=== PATIENT | female | born 1980 | race Caucasian/White ===

== ENCOUNTER 2018-03-11 21:46 | Observation (INO) | payer OTHER ==
[~2018-03-11] VITALS: Ht 137.2 cm; Wt 61.8 kg
[~2018-03-11 21:46] MED LIST: HYDROCORTISONE5 MG PO; KEPPRA250 MG PO; KEPPRA500 MG PO; LEVOXYL50 MCG PO; MIRALAX17 GM PO; ZANTAC 7575 MG PO
[2018-03-11 22:55] LABS: BASOPHILS # (AUTO) 0.1 (0.0-0.1); BASOPHILS % 0.6 % (0.0-1.0); HEMATOCRIT 40.4 % (34.2-44.1); LYMPHOCYTES # (AUTO) 2.6 (1.0-3.2); LYMPHOCYTES % 23.4 % (18.0-39.1); MEAN CORPUSCULAR HEMOGLOBIN 26.8 pg (28-32); MEAN CORPUSCULAR HGB CONC 32.2 g/dL (31-35); MEAN CORPUSCULAR VOLUME 83.3 fL (81-99); MONOCYTES # (AUTO) 0.8 (0.2-0.8); MONOCYTES % 7.5 % (4.4-11.3); NEUTROPHILS # (AUTO) 7.6 (2.1-6.9); NEUTROPHILS % 67.7 % (38.7-80.0); PLATELET COUNT 363 x10e3/uL (140-360); RED BLOOD COUNT 4.85 x10e6/uL (3.6-5.1); RED CELL DISTRIBUTION WIDTH 15.1 % (11.7-14.4)
[2018-03-11 23:10] LABS: ALANINE AMINOTRANSFERASE 13 IU/L (0-55); ALBUMIN 3.8 g/dL (3.5-5.0); ALKALINE PHOSPHATASE 76 IU/L (40-150); AMYLASE 44 U/L (25-125); ANION GAP 15.3 mmol/L (8-16); BLOOD UREA NITROGEN 19 mg/dL (7-26); BUN/CREATININE RATIO 21 (6-25); CALCIUM 9.4 mg/dL (8.4-10.2); CARBON DIOXIDE 23 mmol/L (22-29); CHLORIDE 105 mmol/L (98-107); CREATINE KINASE 50 IU/L (29-168); CREATININE, SERUM 0.89 mg/dL (0.57-1.11); EST GLOMERULAR FILTRATION RATE > 60 ML/MIN (60-); GLUCOSE 109 mg/dL (74-118); LIPASE 29 U/L (8-78); POTASSIUM 4.3 mmol/L (3.5-5.1); SODIUM 139 mmol/L (136-145)
--- NOTE | 2018-03-11 23:30 | Diagnostic Imaging Report ---
EXAM: CHEST SINGLE (PORTABLE), AP 1 view INDICATION: Shortness of breath, possible foreign body in esophagus COMPARISON: None FINDINGS: LINES/TUBES: None LUNGS: No consolidations or edema. PLEURA: No effusions or pneumothorax. HEART AND MEDIASTINUM: Normal size and contour. BONES AND SOFT TISSUES: No acute findings. IMPRESSION: No acute thoracic abnormality. Signed by: Dr. Adelaida Turner M.D. on 03/11/2018 11:27 PM
[2018-03-11 23:32] LABS: BILIRUBIN,URINE NEGATIVE (NEGATIVE); CLARITY,URINE CLEAR (CLEAR); COLOR,URINE YELLOW (YELLOW); KETONES,URINE NEGATIVE (NEGATIVE); LEUKOCYTE ESTERASE ,URINE NEGATIVE (NEGATIVE); NITRITE,URINE NEGATIVE (NEGATIVE); PROTEIN,URINE DIPSTICK NEGATIVE (NEGATIVE); URINE UROBILINOGEN 0.2 mg/dL (0.2 - 1)
[2018-03-11 23:34] LABS: BACTERIA,URINE FEW /HPF; EPITHELIAL CELLS,URINE FEW /LPF; RBC,URINE 0-5 /HPF (0-5)
--- NOTE | 2018-03-11 23:54 | Diagnostic Imaging Report ---
History: Respiratory distress, evaluate for esophageal foreign body. Comparison studies: None Technique: Axial images were obtained from the skull base to the thoracic inlet. Coronal and sagittal images reconstructed from the axial data. Intravenous contrast: None Findings: Evaluation of the neck is limited due to the absence of intravenous contrast. In spite of this limitation, Soft tissues: Subtle linear hyperdensity in the posterior wall of the trachea, approximately measures 1.3 cm in maximum craniocaudad dimension (image 24, series 600) may either be artifactual or represent foreign body. Mild nonspecific narrowing of the oropharyngeal airway, the palatine tonsils are not significantly enlarged. Lymph nodes: No radiographically significant adenopathy. Vessels: Cannot evaluate. Glands (thyroid, parotid and submandibular): Fatty atrophy of bilateral submandibular and parotid glands, which are barely visualized. The thyroid gland is not well visualized, possibly represents hypoplasia or aplasia. Orbits: No abnormalities. Paranasal sinuses: Clear. Temporal bones: No abnormalities. Skull base and facial bones: Intact. Cervical spine: Loss of normal cervical lordosis may be positional or due to muscle spasm. No canal or foraminal stenosis. IMPRESSION: Subtle linear radiopaque density in the posterior wall of the trachea may either represent foreign body or artifact. If there is clinical concern consider follow-up with direct visualization. Nonspecific mild narrowing of the oropharyngeal airway. Signed by: Dr. Constance Huffman M.D. on 03/11/2018 11:50 PM
[2018-03-12] MEDS ORDERED: LEVETIRACETAM 500MG/5ML VIAL 500 MG in SODIUM CHLORIDE 0.9% 100 ML 100 ML IV ONE (00:15)
[2018-03-12] MEDS ORDERED: HYDROCORTISONE SOD SUCCINATE 100 MG VIAL IV ONE (00:15)
[2018-03-12] MEDS ORDERED: SODIUM CHLORIDE 0.9% 1000ML 1,000 ML IV SCH ×2 (00:19→17:30)
[2018-03-12] MEDS ORDERED: ONDANSETRON HCL INJ 2 MG/ML VIAL IV PRN (00:30)
[2018-03-12] MEDS ORDERED: LEVETIRACETAM 500MG/5ML VIAL 250 MG in SODIUM CHLORIDE 0.9% 100 ML 100 ML IV ONE (00:30)
[2018-03-12] MEDS ORDERED: LEVETIRACETAM 500 MG/5 ML VIAL IV ONE (00:55)
[2018-03-12] MEDS ORDERED: SODIUM CHLORIDE 0.9% 100 ML ONE (01:27)
[2018-03-12] MEDS ORDERED: LORAZEPAM0.5 MG PO (02:38)
[2018-03-12] MEDS ORDERED: CORTEF5 MG PO (02:38)
[2018-03-12] MEDS ORDERED: LEVETIRACE100 MG/1 M PO (02:38)
[2018-03-12] MEDS ORDERED: LEVOTHYROXINE50 MCG PO (02:38)
[2018-03-12] MEDS ORDERED: levetiracetam PO (02:38)
[2018-03-12] MEDS ORDERED: LEVETIRACETAM 500MG/5ML VIAL 500 MG in SODIUM CHLORIDE 0.9% 100 ML 100 ML IV SCH ×6 (05:00→14:00)
[2018-03-12] MEDS ORDERED: HYDROCORTISONE SOD SUCCINATE 100 MG VIAL IV SCH ×2 (06:00→10:00)
[2018-03-12] MEDS ORDERED: LORAZEPAM INJ 2 MG/ML VIAL IV PRN (08:15)
[2018-03-12] MEDS: HYDROCORTISONE SOD SUCCINATE 100 MG VIAL IV SCH ×3 (08:53→21:26)
[2018-03-12] MEDS: LEVOTHYROXINE SODIUM 100 MCG/VIAL IV SCH (08:54)
[2018-03-12] MEDS: FAMOTIDINE 20 MG/2 ML VIAL IV SCH ×2 (08:55→16:40)
[2018-03-12] MEDS: PANTOPRAZOLE 40 MG 10ML VIAL IV SCH (08:56)
--- NOTE | 2018-03-12 11:01 | Consultation ---
DATE OF CONSULTATION: PULMONARY/CRITICAL CARE CONSULTATION REFERRING PHYSICIAN: Dr. Cosby. CHIEF COMPLAINT: Brief episode of difficulty breathing. HISTORY OF PRESENT ILLNESS: The patient is a 37-year-old with a congenital neurological disorder. She has profound developmental delay. She is blind. She also has pituitary insufficiency. She takes Synthroid as well as hydrocortisone at home. She has a history of gastroesophageal reflux. She was being followed by Dr. Palacios of gastroenterology. She had an endoscopy about a year ago. She is currently on Pepcid. She had an upper endoscopy about a year ago. She is currently on H2 blockers. About a week ago, she had an episode of nocturnal vomiting, which is new for her. She has not had this type of vomiting in a while. Last night in the late evening, she suddenly became cyanotic and had difficulty breathing. According to the mother, her lips turned blue. The episode lasted for about 10 minutes. The patient was not eating at the time of the event. She had not eaten for at least an hour before the event occurred. She has no prior history of anaphylaxis. She has no history of food allergies or history of anaphylaxis to insect bites. When she came to the emergency department, the mother expressed concern for foreign body because the patient had injected foreign body previously. A CT scan of the neck showed a possible lesion in the posterior wall of the trachea. PAST SURGICAL HISTORY 1. Status post cholecystectomy. 2. Status post hernia repair. 3. Status post endoscopy with Dr. Palacios about a year ago. PAST MEDICAL HISTORY 1. 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 3. Reflux esophagitis. 4. History of sinusitis. SOCIAL HISTORY: The patient lives with her mother. She is not a drinker or smoker. FAMILY HISTORY: There is no significant family history. REVIEW OF SYSTEMS: The patient does not have history of fever. There were no headaches. She does not have neck pain. She did not complain of chest pain. She did not have difficulty breathing other than the one episode described above. She did have some vomiting last week and has had esophageal reflux in the past. She has no abdominal pain. She has no leg edema. PHYSICAL EXAMINATION VITAL SIGNS: The patient is afebrile. Her blood pressure is 105/77 and the pulse is 80. Respiratory rate is 18. The saturation is 97%. HEENT: Examination shows no facial swelling or erythema. The nasal mucosa is normal. She has difficulty opening her mouth. LYMPHATIC: Examination shows no submandibular, cervical or supraclavicular adenopathy. NECK: Examination shows JVD or thyromegaly. CARDIAC: Exam reveals regular rate and rhythm with normal S1 and S2. LUNGS: Auscultation of lungs show decreased breath sounds at the bases. ABDOMEN: Soft, nontender. There is no rebound or guarding. EXTREMITIES: Examination shows no leg edema or calf tenderness. NEUROLOGIC: Exam shows the patient to be blind. She has some spasticity and decreased movement. LABORATORY DATA: CBC is within normal limits. The metabolic panel was normal. IMPRESSIONS 1. Transient laryngospasm probably secondary to gastroesophageal reflux. 2. Possible foreign body along the posterior wall of the trachea. 3. Profound neurological disorder. 4. Blindness. 5. Possible oral dysphagia and aspiration. PLAN 1. We will arrange for a bronchoscopy to look at the upper trachea and make sure there is no foreign body. 2. Speech therapy evaluation. 3. Continue famotidine and Protonix. 4. Consider evaluation by GI. 5. Continue current treatment for panhypopituitarism. Job#: [id number] SKI
[2018-03-12 13:58] VITALS: BP 121/72
[2018-03-12] MEDS ORDERED: LIDOCAINE HCL 4% 50 ML BTL ONE (14:20)
[2018-03-12] MEDS ORDERED: EPINEPHRINE HCL INJ 1 MG/ML AMP ONE (14:21)
[2018-03-12] MEDS ORDERED: LIDOCAINE HCL 2% 30 ML TUBE ONE (14:21)
[2018-03-12] MEDS ORDERED: OXYMETAZOLINE HCL 0.05% NAS 1 SPRAY BTL ONE (14:21)
[2018-03-12] MEDS ORDERED: FENTANYL CITRATE/PF 100MCG/2 ML INJ ONE (15:11)
[2018-03-12 16:06] VITALS: BP 121/72
[2018-03-12] MEDS ORDERED: MELATONIN3 MG PO (16:34)
[2018-03-12] MEDS ORDERED: MILK OF MA2400 MG/10 PO (16:38)
[2018-03-12] MEDS: LEVETIRACETAM 500MG/5ML VIAL 500 MG in SODIUM CHLORIDE 0.9% 100 ML 100 ML IV SCH (16:40)
--- NOTE | 2018-03-12 16:43 | Operative Report ---
DATE OF PROCEDURE: March 12, 2018 PREOPERATIVE DIAGNOSIS: Possible foreign body in trachea. POSTOPERATIVE DIAGNOSIS: Inflamed glottis and upper airway secondary to gastroesophageal reflux. ANESTHESIA: The anesthesia service provided anesthesia and airway management using a laryngeal mask airway. DETAILS OF PROCEDURE: The patient was placed in the supine position. A number 4 laryngeal mask airway was used. The scope was advanced through the laryngeal mask airway. The glottis was inflamed including the cords and the arytenoid cartilages. The vallecula appeared normal. The pyriform sinuses were normal. There were no foreign bodies seen. The scope was advanced through the glottis. The tracheal mucosa appeared normal. There was some mucus removed from the trachea. The leigh was normal. The right tracheobronchial tree was examined. The right upper lobe, right middle lobe and right lower lobe were all normal to the subsegmental level. There were no endobronchial lesions. The scope was then repositioned into the left tracheobronchial tree. The left upper lobe and lingula were normal. The left lower lobe was normal to the endobronchial level. There were no endobronchial lesions. There was friable mucosa in the left mainstem bronchus. No endobronchial lesions. COMPLICATIONS: None. ESTIMATED BLOOD LOSS: None. Job#: [id number] EV
[2018-03-12 17:12] VITALS: BP 110/62
[2018-03-12] MEDS ORDERED: PROPOFOL IV EMULSION 10 MG/ML 20 ML VIAL ONE (17:37)
[2018-03-12] MEDS ORDERED: LIDOCAINE HCL 2% LOCAL INJ 5 ML SDV VIAL INJ ONE (17:37)
[2018-03-12] MEDS ORDERED: HYDROCORTISONE SOD SUCCINATE 100 MG VIAL ONE (17:37)
[2018-03-12] MEDS ORDERED: SEVOFLURANE INHAL SOLN 250 ML PEN BTL ONE (17:37)
[2018-03-12] MEDS ORDERED: MIDAZOLAM HCL 2 MG/2 ML VIAL ONE (18:21)
[2018-03-12 20:00] VITALS: BP 110/62
[2018-03-12 20:30] VITALS: BP 116/71
[2018-03-12] MEDS: ACETAMINOPHEN 325 MG TAB PO PRN (21:26)
[2018-03-12] MEDS: MELATONIN 3 MG TAB PO SCH (21:26)
--- NOTE | 2018-03-12 21:48 | Consultation ---
DATE OF CONSULTATION: March 12, 2018 CARDIOLOGY CONSULTATION REFERRING PHYSICIAN: Dr. Raymond Cosby REASON FOR CONSULTATION: History of abnormal telemetry reads, unspecified, and presenting with possible syncopal episode versus apneic spell. HISTORY OF PRESENT ILLNESS: Ms. Meza is a 37-year-old woman with history of panhypopituitarism, blindness, severe developmental delay, and gastroesophageal reflux disease, who presents to [facility] via the emergency department brought by EMS after she was noted to have episodes of apnea and cyanosis as per family members. When EMS arrived, she was noted to have elevated blood pressure and was very tachycardiac. Upon arrival to the ER per family, patient received some hydrocortisone, however, her blood pressure actually remained on the lower side throughout the night per family report. Family describes a history of some chamber enlargement of the heart and prior reports of telemetry alarms when hospitalized at other institutions, for which family is unsure what these were about, but did not raise their concerns given current presentation. She is unable to voice any concerns due to her development delay. She, however, seems comfortable. She was evaluated by pulmonary for possible foreign body in the trachea, inflamed glottis, and upper airway inflammation secondary to reflux was noted, no foreign body is observed. REVIEW OF SYSTEMS: Twelve-system review unable to assess. ALLERGIES: TO BENADRYL, HYDROMORPHONE. PAST MEDICAL HISTORY: As per HPI. SOCIAL HISTORY: No smoking, alcohol, or drugs. Has good family support. PHYSICAL EXAMINATION: VITAL SIGNS: Temperature 98.2, heart rate 90s, respiratory rate 17, blood pressure 110/62, O2 sat 94%. GENERAL: In no acute distress. NECK: No JVD. CHEST: Clear to auscultation bilaterally. CARDIOVASCULAR: Regular rate and rhythm. Normal S1 and S2. No S3, no S4. No murmurs or rubs. ABDOMEN: Soft. EXTREMITIES: No edema. Warm distal extremities. CARDIOVASCULAR MEDICATIONS: Reviewed. On hydrocortisone 50 mg q.8h. IV and Keppra IV. STUDIES: White blood cells 11.2, hemoglobin 13, platelets 363,000. Sodium 139, potassium 4.3, chloride 105, bicarbonate 23, BUN 19, creatinine 0.89. AST 22, ALT 13, alk phos 76. CK 50, CK-MB 0.5. Troponin I less than 0.001. Total protein 7.6, albumin 3.8, amylase 44, lipase 29. Total cortisol is ordered and pending. EKG, sinus tachycardia with baseline tremor artifact. Telemetry, normal sinus rhythm with rare PACs. No pauses or arrhythmia is observed so far. Chest x-ray, no acute abnormality. Soft tissue neck CT, subtle linear radiopaque density in the posterior wall of the trachea may represent a foreign body or artifact, nonspecific, mild narrowing of the oropharyngeal airway. ASSESSMENT: 1. Reported history of abnormal telemetry strips, unspecified. 2. Rare premature atrial contractions on current telemetry. 3. Episodes of apnea and cyanosis versus less likely syncope. 4. Reported history of enlarged heart chambers, unspecified. Will further review. 5. Panhypopituitarism. 6. Blindness. 7. Severe developmental delay. 8. Inflamed glottis gastroesophageal reflux disease. RECOMMENDATIONS: 1. Maintain on telemetry. 2. Agree with hydrocortisone supplementation given history of secondary adrenal insufficiency and issues with blood pressure reported. 3. Obtain echocardiogram. 4. Further recommendations to follow. Job#: [id number]
[2018-03-13] VITALS (7 sets, daily range): BP systolic 101–131; BP diastolic 59–81
[2018-03-13] MEDS: LEVETIRACETAM 500MG/5ML VIAL 500 MG in SODIUM CHLORIDE 0.9% 100 ML 100 ML IV SCH (04:00)
[2018-03-13 05:33] LABS: BASOPHILS % 0.3 % (0.0-1.0); HEMATOCRIT 34.9 % (34.2-44.1); HEMOGLOBIN 11.2 g/dL (12.0-16.0); LYMPHOCYTES # (AUTO) 2.2 (1.0-3.2); LYMPHOCYTES % 13.7 % (18.0-39.1); MEAN CORPUSCULAR HEMOGLOBIN 26.9 pg (28-32); MEAN CORPUSCULAR HGB CONC 32.1 g/dL (31-35); MEAN CORPUSCULAR VOLUME 83.7 fL (81-99); MONOCYTES # (AUTO) 0.8 (0.2-0.8); NEUTROPHILS # (AUTO) 12.8 (2.1-6.9); NEUTROPHILS % 80.5 % (38.7-80.0); PLATELET COUNT 325 x10e3/uL (140-360); RED BLOOD COUNT 4.17 x10e6/uL (3.6-5.1); RED CELL DISTRIBUTION WIDTH 15.3 % (11.7-14.4)
[2018-03-13 05:48] LABS: ANION GAP 11.5 mmol/L (8-16); BLOOD UREA NITROGEN 11 mg/dL (7-26); BUN/CREATININE RATIO 15 (6-25); CALCIUM 8.2 mg/dL (8.4-10.2); CARBON DIOXIDE 22 mmol/L (22-29); CHLORIDE 113 mmol/L (98-107); CREATININE, SERUM 0.74 mg/dL (0.57-1.11); EST GLOMERULAR FILTRATION RATE > 60 ML/MIN (60-); GLUCOSE 95 mg/dL (74-118); MAGNESIUM 2.1 MG/DL (1.3-2.1); POTASSIUM 3.5 mmol/L (3.5-5.1); SODIUM 143 mmol/L (136-145)
[2018-03-13] MEDS: HYDROCORTISONE SOD SUCCINATE 100 MG VIAL IV SCH ×2 (05:58→14:00)
[2018-03-13 06:14] LABS: FREE T4 (FREE THYROXINE) 1.02 ng/dL (0.9-1.8); THYROID STIMULATING HORMONE 0.092 uIU/mL (0.350-4.940)
[2018-03-13] MEDS: MAGNESIUM HYDROXIDE 30 ML UDC PO SCH (08:21)
[2018-03-13] MEDS: FAMOTIDINE 20 MG/2 ML VIAL IV SCH (08:21)
[2018-03-13] MEDS: PANTOPRAZOLE 40 MG 10ML VIAL IV SCH (09:42)
[2018-03-13] MEDS: LEVOTHYROXINE SODIUM 100 MCG/VIAL IV SCH (09:42)
[2018-03-13] MEDS: ACETAMINOPHEN 325 MG TAB PO PRN (15:40)
[2018-03-13] MEDS: HYDROCORTISONE 10 MG TAB PO SCH (17:31)
--- NOTE | 2018-03-13 17:47 | Consultation ---
DATE OF CONSULTATION: March 13, 2018 ENDOCRINE CONSULTATION Thank you very much for referring this patient. This is a patient of Dr. Cosby. his is a 37-year-old white female who is known to me from her previous followups at [facility]. Patient has septooptic dysplasia associated with seizure disorders, hypocortisolism, hypothyroidism and patient had an episode of apnea and was supposed to have a bronchoscopy done. Post bronchoscopy patient has been on IV steroids. She also has severe reflux as well. The patient at home takes hydrocortisone 5 mg 3 times a day and Synthroid. PHYSICAL EXAMINATION GENERAL: Today the patient is awake. She is of short stature. She has multiple deformities of her upper and lower extremities. VITAL SIGNS: Her heart rate is 60. Blood pressure is 110/60 mmHg. HEENT: Examination essentially unremarkable. Thyroid is palpable. Clinically she is near euthyroid. CHEST: Bilateral vesicular breathing. She had mild bronchospasm. CARDIAC: Both 1st and 2nd heart sounds. There is no 3rd or 4th heart sound. Ejection sound is grade 2/6. The gross lab evaluation shows at this time hemoglobin 11.2 with a hematocrit of 34.9. White count is elevated at 15.9. Electrolytes are essentially unremarkable, except potassium is 3.5. The plan at this time is to do a serum ACTH, free T4, TSH and also discontinue the IV steroids and put her on p.o. steroids. Thanks for referring this patient. I will be following this patient with you. Job#: [id number]
--- NOTE | 2018-03-13 18:03 | Progress Note ---
DATE: March 13, 2018 CARDIOLOGY PROGRESS NOTE SUBJECTIVE: No complaints. OBJECTIVE VITAL SIGNS: Temperature 96.4, heart rate 90, respiratory rate 16, blood pressure 131/73. O2 sat 94% on room air. GENERAL: No acute distress. CHEST: Clear to auscultation. CARDIOVASCULAR: Regular rate and rhythm. S1 and S2. No S3 and no S4. A systolic ejection murmur 2/6. ABDOMEN: Soft. EXTREMITIES: No edema. Warm distal extremities. CARDIOVASCULAR MEDICATIONS: Reviewed on hydrocortisone 20 mg b.i.d., Keppra and lorazepam. TELEMETRY: Normal sinus rhythm when patient has it in place. She is frequently taking leads off. Echocardiogram reviewed, preserved left ventricular systolic function. Mild to moderate tricuspid regurgitation noted. LABORATORY STUDIES: Studies reviewed. White count increasing to 15.9, likely related to steroids. Hemoglobin 11.2. Platelets 325,000. Creatinine 0.74. TSH is slightly decreased at 0.092. ASSESSMENT: 1. Premature ventricular contractions, rare, on telemetry, mainly normal sinus rhythm. 2. Reported episode of apnea and cyanosis, less likely syncope. 3. Mild to moderate tricuspid regurgitation with preserved left ventricular systolic function. 4. Hypopituitarism. 5. Blindness. 6. Severe developmental delay. 7. Inflamed colitis, likely associated to gastroesophageal reflux disease. PLAN: 1. While inhouse, keep on telemetry. 2. Hydrocortisone. 3. Entire supplementation defer to primary service. 4. Hemodynamically stable today. Job#: [id number]
[2018-03-13] MEDS: LORAZEPAM 0.5 MG TAB PO SCH (21:07)
[2018-03-13] MEDS: LEVETIRACETAM ORAL SOLUTION 500 MG/5 ML SOLN PO SCH (21:07)
[2018-03-13] MEDS: MELATONIN 3 MG TAB PO SCH (21:07)
[2018-03-14] VITALS: BP 135/80
[2018-03-14 05:25] VITALS: BP 102/70
[2018-03-14] MEDS: LEVOTHYROXINE SODIUM 50 MCG TAB PO SCH (06:06)
[2018-03-14 06:26] LABS: BASOPHILS # (AUTO) 0.1 (0.0-0.1); BASOPHILS % 0.7 % (0.0-1.0); HEMOGLOBIN 11.8 g/dL (12.0-16.0); LYMPHOCYTES # (AUTO) 2.3 (1.0-3.2); MEAN CORPUSCULAR HEMOGLOBIN 26.4 pg (28-32); MEAN CORPUSCULAR HGB CONC 31.1 g/dL (31-35); MONOCYTES # (AUTO) 0.6 (0.2-0.8); MONOCYTES % 5.5 % (4.4-11.3); NEUTROPHILS # (AUTO) 7.3 (2.1-6.9); NEUTROPHILS % 70.1 % (38.7-80.0); PLATELET COUNT 289 x10e3/uL (140-360); RED BLOOD COUNT 4.47 x10e6/uL (3.6-5.1); RED CELL DISTRIBUTION WIDTH 15.5 % (11.7-14.4)
[2018-03-14 06:45] LABS: ANION GAP 9.6 mmol/L (8-16); BLOOD UREA NITROGEN 13 mg/dL (7-26); BUN/CREATININE RATIO 18 (6-25); CALCIUM 8.6 mg/dL (8.4-10.2); CARBON DIOXIDE 24 mmol/L (22-29); CHLORIDE 110 mmol/L (98-107); CREATININE, SERUM 0.73 mg/dL (0.57-1.11); EST GLOMERULAR FILTRATION RATE > 60 ML/MIN (60-); GLUCOSE 88 mg/dL (74-118); MAGNESIUM 2.2 MG/DL (1.3-2.1); POTASSIUM 3.6 mmol/L (3.5-5.1); SODIUM 140 mmol/L (136-145)
[2018-03-14] MEDS: ACETAMINOPHEN 325 MG TAB PO PRN (08:23)
[2018-03-14] MEDS: MAGNESIUM HYDROXIDE 30 ML UDC PO SCH (08:23)
[2018-03-14] MEDS: PANTOPRAZOLE SOD 40 MG TABEC PO SCH (08:23)
[2018-03-14 08:28] VITALS: BP 132/84
[2018-03-14] MEDS ORDERED: MORPHINE SULFATE 2 MG/ML SYR IV PRN (09:45)
[2018-03-14] MEDS ORDERED: ACETAMINOPHEN/CODEINE 300MG - 30MG TAB PO PRN (09:45)
[2018-03-14] MEDS: LEVETIRACETAM ORAL SOLUTION 500 MG/5 ML SOLN PO SCH ×2 (09:59→21:30)
[2018-03-14] MEDS: OYST-CAL-D 500MG TABLET PO SCH (09:59)
[2018-03-14] MEDS: HYDROCORTISONE 10 MG TAB PO SCH ×2 (09:59→16:55)
[2018-03-14 15:54] VITALS: BP 132/84
[2018-03-14 16:07] VITALS: BP 113/75
[2018-03-14] MEDS: FAMOTIDINE 20 MG TAB PO SCH (16:55)
--- NOTE | 2018-03-14 17:03 | Progress Note ---
DATE: March 14, 2018 CARDIOLOGY PROGRESS NOTE SUBJECTIVE: Sleeping comfortably. OBJECTIVE VITAL SIGNS: Temperature 97.3, heart rate 90, respiratory rate 14, blood pressure 132/84, O2 sat 96% on room air. GENERAL: No acute distress. Sleeping comfortably. CHEST: Clear to auscultation. CARDIOVASCULAR: Regular rate and rhythm, normal S1 and S2, no S3, no S4, no murmurs or rubs. ABDOMEN: Soft and nontender. EXTREMITIES: No edema. No JVD. SKIN: No rash. Moist mucosa. CARDIOVASCULAR MEDICATIONS: Reviewed on hydrocortisone, Keppra, and Protonix. TELEMETRY: Normal sinus rhythm, no arrhythmias. LABORATORY STUDIES: White blood cells 10.4, hemoglobin 11.8, platelets 289,00. Sodium 140, potassium 3.6, chloride 110, bicarbonate 24, BUN 13, creatinine 0.73, glucose 88. Calcium 8.6, magnesium 2.2. BNP 82. ASSESSMENT: 1. Rare PACs, currently in normal sinus rhythm. 2. Reported episode of apnea and cyanosis, less likely syncope. 3. Mild to moderate tricuspid regurgitation with preserved left ventricular systolic function on this admission's echocardiogram. 4. Hypopituitarism. 5. Blindness. 6. Seizure disorder. 7. Severe developmental delay. 8. Inflamed colitis. 9. Severe reflux. PLAN: 1. Continue supplementation of hormones as per endocrine. 2. Keep on telemetry while inhouse. 3. No evidence of arrhythmias or any cardiac etiology for syncope identified so far. Hemodynamically stable. Job#: [id number]
[2018-03-14 20:00] VITALS: BP 137/89
[2018-03-14] MEDS: MELATONIN 3 MG TAB PO SCH (21:30)
[2018-03-14] MEDS: LORAZEPAM 0.5 MG TAB PO SCH (21:31)
[2018-03-15] VITALS: BP 137/84
[2018-03-15 04:00] VITALS: BP 100/60
[2018-03-15 05:48] LABS: BASOPHILS # (AUTO) 0.1 (0.0-0.1); BASOPHILS % 0.7 % (0.0-1.0); HEMATOCRIT 37.7 % (34.2-44.1); LYMPHOCYTES # (AUTO) 2.9 (1.0-3.2); LYMPHOCYTES % 24.7 % (18.0-39.1); MEAN CORPUSCULAR HEMOGLOBIN 26.8 pg (28-32); MEAN CORPUSCULAR HGB CONC 31.8 g/dL (31-35); MEAN CORPUSCULAR VOLUME 84.3 fL (81-99); MONOCYTES # (AUTO) 0.9 (0.2-0.8); MONOCYTES % 7.7 % (4.4-11.3); NEUTROPHILS # (AUTO) 7.7 (2.1-6.9); NEUTROPHILS % 65.8 % (38.7-80.0); PLATELET COUNT 346 x10e3/uL (140-360); RED BLOOD COUNT 4.47 x10e6/uL (3.6-5.1); RED CELL DISTRIBUTION WIDTH 15.5 % (11.7-14.4)
[2018-03-15] MEDS: LEVOTHYROXINE SODIUM 50 MCG TAB PO SCH (06:00)
[2018-03-15 06:03] LABS: BLOOD UREA NITROGEN 15 mg/dL (7-26); BUN/CREATININE RATIO 17 (6-25); CALCIUM 8.7 mg/dL (8.4-10.2); CARBON DIOXIDE 25 mmol/L (22-29); CHLORIDE 109 mmol/L (98-107); CREATININE, SERUM 0.86 mg/dL (0.57-1.11); EST GLOMERULAR FILTRATION RATE > 60 ML/MIN (60-); GLUCOSE 87 mg/dL (74-118); MAGNESIUM 2.2 MG/DL (1.3-2.1); SODIUM 143 mmol/L (136-145)
[2018-03-15] MEDS: HYDROCORTISONE 10 MG TAB PO SCH (07:00)
[2018-03-15 07:38] VITALS: BP 196/99
[2018-03-15] MEDS ORDERED: TYLENOL # 31 EA PO (07:52)
[2018-03-15] MEDS ORDERED: LORAZEPAM0.5 MG PO (07:52)
[2018-03-15] MEDS ORDERED: FAMOTIDINE20 MG PO (08:09)
[2018-03-15] MEDS ORDERED: PROTONIX40 MG/ML PO (08:09)
[2018-03-15] MEDS ORDERED: ATIVAN0.5 MG PO (08:09)
[2018-03-15] MEDS: MAGNESIUM HYDROXIDE 30 ML UDC PO SCH (10:30)
[2018-03-15] MEDS: FAMOTIDINE 20 MG TAB PO SCH (10:30)
[2018-03-15] MEDS: OYST-CAL-D 500MG TABLET PO SCH (10:30)
[2018-03-15] MEDS: LEVETIRACETAM ORAL SOLUTION 500 MG/5 ML SOLN PO SCH (10:30)
[2018-03-15] MEDS: PANTOPRAZOLE SOD 40 MG TABEC PO SCH (10:30)
[2018-03-15 10:55] VITALS: BP 196/99
[2018-03-15 11:10] VITALS: BP 105/63
--- NOTE | 2018-03-15 11:34 | Progress Note ---
DATE: March 15, 2018 CARDIOLOGY PROGRESS NOTE SUBJECTIVE: No complaints. OBJECTIVE VITAL SIGNS: Temperature 98.4, heart rate 88, respiratory rate 20, blood pressure 100/60, O2 sat 95% on room air. GENERAL: In no acute distress. HEENT: [place] and moist mucosa. CHEST: Clear to auscultation bilaterally. CARDIOVASCULAR: Regular rate and rhythm. Normal S1 and S2. No S3, no S4, no murmurs, no rubs. ABDOMEN: Soft. EXTREMITIES: No edema. Warm distal extremities. CARDIOVASCULAR MEDICATIONS: Reviewed; hydrocortisone, Keppra, melatonin, lorazepam, acetaminophen, levothyroxine, and p.r.n. morphine. LABORATORY STUDIES: For today, white blood cells 11.7, hemoglobin 12, platelets 341. Sodium 143, potassium 4, chloride 109, bicarbonate 25, BUN 15, creatinine 0.8, glucose 87, magnesium 2.2, calcium 8.7. TELEMETRY: Normal sinus rhythm. ASSESSMENT 1. Rare premature atrial contractions, currently in sinus rhythm. 2. Apnea and cyanosis, less likely syncope. 3. [id number] tricuspid regurgitation. 4. Preserved left ventricular systolic function. 5. Hypopituitarism. 6. Blindness. 7. Seizure disorder. 8. Severe developmental delay. 9. Inflamed epiglottis. 10. Severe reflux. RECOMMENDATIONS: No evidence so far of etiology for syncope. History is most consistent with airway obstructive temporary issue given inflamed epiglottis in the setting of severe reflux, this might explain episode. There has not been any recurrence. Patient has remained hemodynamically stable and with no evidence of arrhythmias. From a cardiac standpoint, okay to discharge with outpatient followup in 4-6 weeks. Job#: [id number] THELMA
--- NOTE | 2018-03-15 11:40 | Diagnostic Imaging Report ---
EXAM: Complete Abdominal Ultrasound INDICATION: \S\abd pain COMPARISON: None. TECHNIQUE: Transverse and longitudinal images of the upper abdomen were obtained. FINDINGS: Limited study due to bowel gas and inability to follow the breathing instructions. Liver: Size: 11 cm in the right midclavicular line, normal Appearance: Normal echogenicity, smooth contour Mass: No definite focal masses in the visualized portion. Spleen: Size: 10.7 cm in length, normal Echogenicity: Normal Mass: No focal masses Gallbladder: Surgically absent. Bile Ducts: Intrahepatic Ducts: No dilatation Extrahepatic Ducts: Common bile duct measures 0.3 cm, no dilatation Pancreas: Not well visualized. Right Kidney: Size: 8.7 cm Echogenicity: Normal Parenchymal thickness: Normal Collecting System: No hydronephrosis Stone: None Cyst/Mass: None Left Kidney: Size: 8.7 cm Echogenicity: Normal Parenchymal thickness: Normal Collecting System: No hydronephrosis Stone: None Cyst/Mass: None Vessels: Aorta: Not visualized, limiting evaluation. Inferior Vena Cava: Visualized portions are normal Main Portal Vein: 0.6 cm, normal size with hepatopetal flow. Free Fluid: No ascites or pleural effusion IMPRESSION: Very limited study as described above. Unremarkable abdominal ultrasound. Cholecystectomy. Signed by: Dr. Logan Phelps MD on 03/15/2018 11:37 AM
[2018-03-15 15:18] VITALS: BP 118/72
--- NOTE | 2018-03-15 20:39 | Discharge Summary ---
No dictation, 00:00 seconds. PAM LIU MD Job#: [id number]
--- NOTE | 2018-03-15 20:59 | Discharge Summary ---
ADMISSION DIAGNOSES: 1. Possible foreign body in trachea. 2. Hypoxia. 3. Epilepsy. 4. Hypothyroidism. 5. Anxiety. 6. [place] disease. 7. Obese. 8. Arrhythmia. DISCHARGE DIAGNOSES: 1. Possible foreign body in trachea. 2. Hypoxia. 3. Epilepsy. 4. Hypothyroidism. 5. Anxiety. 6. [place]aka disease. 7. Obese. 8. Arrhythmia. 9. Ruled out foreign body in trachea. 10. Ruled out arrhythmias. HISTORY: Patient has a history of hypothyroidism, Mick disease, optic dysplasia, hypopituitarism, profound MR, epilepsy, nonverbal, frequent UTIs, and prediabetic. Surgical history of cholecystectomy and foreign body removal from stomach. HOSPITAL COURSE: A 37-year-old female with profound MR, was found on couch by mother. She was not breathing and her lips were blue. Her mother grabbed her and the patient began to take shallow breath. Her pulse ox was 92% and the blood pressure cuff indicated an arrhythmia. Upon EMS arrival, patient's blood pressure was elevated. Mother did not know an exact number, and the heart rate was in the 200s. According to the mom, the patient ate about an hour before lying down without any coughing or choking noted. On admission, patient had a CT of the neck that showed subtle linear radiopaque density in the posterior wall of the trachea, may represent either foreign body or artifact. Patient also had a chest x-ray that showed no acute thoracic abnormality. Pulmonary was consulted who arranged for a bronchoscope. During the bronchoscope, Dr. Dominguez found inflamed glottis and upper airway secondary to GERD. Cardiology was then consulted due to the unknown arrhythmia per mother's account in the ambulance. Patient remained sinus rhythm and occasionally sinus tach into the low 120s per tele monitoring. No further recommendations per cardiology. Patient was initially put on 50 mg Solu-Medrol t.i.d. upon arrival to the ER. Endo was consulted, who started the patient on p.o. steroids, tapered them down. Patient's bronchial culture showed normal celine. Vital signs were stable. Patient afebrile. Due to abdominal pain, an ultrasound of the abdomen was done, which was negative. Per pulmonology recommendation, patient was started on Pepcid and Protonix for her GERD. Patient was sent home on Pepcid, Protonix, lorazepam, and pain medicine as well as continuing her home medicine. She will follow up with her negotiator next week per her mother's account and follow up with Dr. Dominguez and Dr. Todd as needed. Mom understands discharge instructions and agrees to plan. Dictated by Ani Bender NP PAM LIU MD Job#: [id number]
== END 2018-03-15 15:57 | disposition home or self-care (01) ==
LOC: ER 21:46 → ERHOLD 03-12 00:27 → IMCU 03-12 13:46
PROVIDERS: ADMIT Internal Medicine; ATTEND Internal Medicine
DX: J38.5 Laryngeal spasm (principal); E27.1 Primary adrenocortical insufficiency; E03.9 Hypothyroidism, unspecified; F73 Profound intellectual disabilities; D47.3 Essential (hemorrhagic) thrombocythemia; K21.9 Gastro-esophageal reflux disease without esophagitis; H54.8 Legal blindness, as defined in USA; I49.1 Atrial premature depolarization; Q04.4 Septo-optic dysplasia of brain; G40.909 Epilepsy, unspecified, not intractable, without status epilepticus; R23.0 Cyanosis; I07.1 Rheumatic tricuspid insufficiency; R09.02 Hypoxemia; F41.9 Anxiety disorder, unspecified; E66.9 Obesity, unspecified; Z68.32 Body mass index [BMI] 32.0-32.9, adult; E83.51 Hypocalcemia
CPT/HCPCS: 31622; 36415 ×4; 70490; 71045; 76700; 80048 ×3; 80053; 81001; 82024; 82150; 82533; 82550; 82553; 82948 ×2; 83036; 83690; 83735 ×3; 83880; 84439; 84443; 84484; 85025 ×4; 87205; 87335; 92610; 93005; 93306; 97139; 97162; 97530; 99284; G0378 ×4; G8978; G8979; J1720 ×2; J2001; J2250; J7030; J7050; S0164 ×2; J0171

== ENCOUNTER 2018-12-17 16:43 | Emergency (ER) | payer OTHER ==
[~2018-12-17] VITALS: Ht 137.2 cm; Wt 61.7 kg
[~2018-12-17 16:43] MED LIST changes: +ATIVAN0.5 MG PO; +CORTEF5 MG PO; +FAMOTIDINE20 MG PO; +LEVETIRACE100 MG/1 M PO; +LEVOTHYROXINE50 MCG PO; +LORAZEPAM0.5 MG PO; +MELATONIN3 MG PO; +MILK OF MA2400 MG/10 PO; +PROTONIX40 MG/ML PO; +TYLENOL # 31 EA PO; +levetiracetam PO
[2018-12-17] MEDS ORDERED: HYDROCORTISONE SOD SUCCINATE 100 MG VIAL IV ONE (17:00)
[2018-12-17] MEDS ORDERED: SODIUM CHLORIDE 0.9% 1000ML 1,000 ML IV STA (17:00)
[2018-12-17 18:12] LABS: BASOPHILS # (AUTO) 0.1 (0.0-0.1); BASOPHILS % 0.8 % (0.0-1.0); HEMATOCRIT 43.6 % (34.2-44.1); HEMOGLOBIN 14.1 g/dL (12.0-16.0); LYMPHOCYTES # (AUTO) 1.9 (1.0-3.2); MEAN CORPUSCULAR HEMOGLOBIN 28.2 pg (28-32); MEAN CORPUSCULAR HGB CONC 32.3 g/dL (31-35); MEAN CORPUSCULAR VOLUME 87.2 fL (81-99); MONOCYTES # (AUTO) 0.9 (0.2-0.8); MONOCYTES % 8.4 % (4.4-11.3); NEUTROPHILS # (AUTO) 7.6 (2.1-6.9); PLATELET COUNT 334 x10e3/uL (140-360); RED CELL DISTRIBUTION WIDTH 14.4 % (11.7-14.4)
--- NOTE | 2018-12-17 18:24 | Diagnostic Imaging Report ---
CT BRAIN WO HISTORY: Seizure COMPARISON: Neck CT 03/11/2018 TECHNIQUE: Noncontrast axial scans were obtained from skull base to the vertex. Coronal and sagittal reconstructions obtained from the axial data. One or more of the following dose reduction techniques were used: Automated exposure control, adjustment of the mA and/or kV according to patient size, and/or utilization of iterative reconstruction technique. DISCUSSION: Scalp/Skull: Unremarkable. Brain sulci: Appropriate for patient's age. Ventricles: The septum pellucidum is absent. Otherwise, unremarkable. Extra-axial spaces: No masses or fluid collections. Parenchyma: The optic nerves and chiasm appear atrophic. No mass, hemorrhage, or large vascular territory acute infarct. Dural sinuses: No abnormal densities. Sellar/Suprasellar region: Empty sella. Skull base: Intact. Additional findings: None. IMPRESSION: 1. No acute intracranial abnormalities. 2. 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 Correlate for septo-optic dysplasia. 3. Empty sella. Signed by: Dr. Claudy Moreau M.D. on 12/17/2018 6:20 PM
[2018-12-17 18:31] LABS: INR 0.87; PROTHROMBIN TIME 12.3 seconds (11.9-14.5)
[2018-12-17 18:32] LABS: PARTIAL THROMBOPLASTIN TIME 36.1 seconds (23.8-35.5)
[2018-12-17 18:43] LABS: ALANINE AMINOTRANSFERASE 17 IU/L (0-55); ALBUMIN 4.2 g/dL (3.5-5.0); ALBUMIN/GLOBULIN RATIO 1.1 (0.8-2.0); ALKALINE PHOSPHATASE 74 IU/L (40-150); ANION GAP 13.1 mmol/L (8-16); BLOOD UREA NITROGEN 16 mg/dL (7-26); BUN/CREATININE RATIO 19 (6-25); CARBON DIOXIDE 26 mmol/L (22-29); CHLORIDE 102 mmol/L (98-107); CREATININE, SERUM 0.83 mg/dL (0.57-1.11); EST GLOMERULAR FILTRATION RATE > 60 ML/MIN (60-); GLUCOSE 91 mg/dL (74-118); POTASSIUM 4.1 mmol/L (3.5-5.1); SODIUM 137 mmol/L (136-145)
--- NOTE | 2018-12-17 18:43 | Diagnostic Imaging Report ---
EXAM: CHEST SINGLE (PORTABLE), AP 1 view INDICATION: Seizure. COMPARISON: 03/11/2018. FINDINGS: LINES/TUBES: None LUNGS: Bilateral suboptimal inspiration. No consolidations or edema. PLEURA: No effusions or pneumothorax. HEART AND MEDIASTINUM: Magnification by portable technique and suboptimal inspiration. BONES AND SOFT TISSUES: No acute findings. IMPRESSION: Suboptimal aspiration. Signed by: Dr. Jatin Howard M.D. on 12/17/2018 6:40 PM
[2018-12-17 19:00] LABS: THYROID STIMULATING HORMONE 0.784 uIU/mL (0.350-4.940)
[2018-12-17 19:26] LABS: BILIRUBIN,URINE NEGATIVE (NEGATIVE); CLARITY,URINE CLEAR (CLEAR); COLOR,URINE YELLOW (YELLOW); KETONES,URINE NEGATIVE (NEGATIVE); LEUKOCYTE ESTERASE ,URINE NEGATIVE (NEGATIVE); NITRITE,URINE NEGATIVE (NEGATIVE); PROTEIN,URINE DIPSTICK NEGATIVE (NEGATIVE); URINE UROBILINOGEN 0.2 mg/dL (0.2 - 1)
[2018-12-17 19:50] LABS: BACTERIA,URINE MODERATE /HPF; EPITHELIAL CELLS,URINE FEW /LPF; WBC,URINE (MAN) 0-5 /HPF (0-5)
== END 2018-12-17 20:10 | disposition home or self-care (01) ==
LOC: ER 16:47
DX: G40.409 Other generalized epilepsy and epileptic syndromes, not intractable, without status epilepticus (principal)
CPT/HCPCS: 36415; 70450; 71045; 80053; 81001; 83605; 84443; 85025; 85610; 85730; 87040; 87086; 93005; 99284; J1720; J7030